=== PATIENT | male | born 1975 | race Caucasian/White ===

== ENCOUNTER 2021-11-18 13:21 | Inpatient (IN) | payer OTHER ==
[2021-11-18] MEDS ORDERED: LOPERAMIDE HCL 2 MG CAPSULE PO PRN (14:24)
[2021-11-18] MEDS ORDERED: ONDANSETRON *ODT* 4 MG TABLET SL PRN (14:24)
[2021-11-18] MEDS ORDERED: IBUPROFEN 400 MG TABLET (FP) PO PRN (14:24)
[2021-11-18] MEDS ORDERED: BISMUTH SUBSALICYLATE 524 MG/30 ML PO PRN (14:24)
[2021-11-18] MEDS ORDERED: MAG HYDROX/AL HYDROX/SIMETH 30 ML UNIT-DOSE CUP PO PRN (14:24)
[2021-11-18] MEDS ORDERED: MAGNESIUM HYDROX 2400MG/30ML ORAL SUSPENSION 30 ML CUP PO PRN (14:24)
[2021-11-18] MEDS ORDERED: MENTHOL/PHENOL 1 EACH UD MM PRN (14:24)
[2021-11-18] MEDS ORDERED: MAGNESIUM CITRATE 300 ML BOTTLE PO PRN (14:24)
[2021-11-18] MEDS ORDERED: ACETAMINOPHEN 325 MG TABLET (FP) PO PRN ×2 (14:24)
[2021-11-18] MEDS ORDERED: NALOXONE HCL 0.4 MG/ML VIAL IM PRN (14:24)
[2021-11-18] MEDS ORDERED: ALBUTEROL SO4 HFA INHALER IH PRN (14:30)
[2021-11-18 15:35] VITALS: BMI 25.0
[2021-11-18] MEDS: METHOCARBAMOL 500 MG TABLET PO PRN (17:54)
[2021-11-18] MEDS: PRENATAL VITAMINS W/ FOLIC ACID TABLET (FP) PO SCH (17:55)
[2021-11-18] MEDS: NICOTINE 21 MG/24 HOURS TOPICAL PATCH TD SCH (17:55)
[2021-11-18] MEDS: diazePAM 5 MG TABLET PO SCH ×2 (17:55→22:41)
[2021-11-18] MEDS: NICOTINE 10 MG CARTRIDGE (INHALER) IH PRN (17:59)
[2021-11-18] MEDS ORDERED: hydrOXYzine PAMOATE 25 MG CAPSULE (FP) PO SCH (18:00)
[2021-11-18] MEDS ORDERED: THIAMINE HCL 100 MG TABLET (FP) PO SCH (22:00)
[2021-11-18] MEDS: MELATONIN 5 MG TABLETS PO SCH (22:41)
[2021-11-18] MEDS: THIAMINE HCL 100 MG TABLET (FP) PO SCH (22:41)
[2021-11-19] MEDS: diazePAM 5 MG TABLET PO SCH ×4 (05:38→22:48)
[2021-11-19] MEDS ORDERED: methaDONE HCL 10 MG TABLET PO SCH (08:45)
[2021-11-19 10:49] LABS: HEMATOCRIT 32.8 % (35.4-49); HEMOGLOBIN 10.8 GM/dL (11.7-16.9); MCH 30.7 pg (25.7-33.7); MEAN CELL VOLUME 93.2 fl (80-96); MEAN PLT VOLUME 8.5 fl (7.5-11.1); PLATELET COUNT 280 10^3/uL (134-434); RBC 3.52 M/mm3 (4.00-5.60); WHITE BLOOD COUNT 6.6 K/mm3 (4.0-10.0)
[2021-11-19 11:02] LABS: CALCIUM 8.7 mg/dL (8.5-10.1)
[2021-11-19 11:03] LABS: ALBUMIN 2.7 g/dl (3.4-5.0); BLOOD UREA NITROGEN 12.8 mg/dL (7-18)
[2021-11-19 11:06] LABS: CREATININE 0.9 mg/dL (0.55-1.3)
[2021-11-19 11:07] LABS: BILIRUBIN,TOTAL 0.5 mg/dL (0.2-1); TOT PROT 6.9 g/dl (6.4-8.2)
[2021-11-19] MEDS ORDERED: methaDONE HCL 40 MG DISPERSABLE TABLET ONE (11:15)
[2021-11-19] MEDS ORDERED: methaDONE HCL 10 MG TABLET ONE (11:15)
[2021-11-19] MEDS: NICOTINE 21 MG/24 HOURS TOPICAL PATCH TD SCH (11:21)
[2021-11-19] MEDS: PRENATAL VITAMINS W/ FOLIC ACID TABLET (FP) PO SCH (11:21)
[2021-11-19] MEDS: NICOTINE 10 MG CARTRIDGE (INHALER) IH PRN (13:02)
[2021-11-19] MEDS: diazePAM 5 MG TABLET PO PRN (20:30)
[2021-11-19] MEDS: THIAMINE HCL 100 MG TABLET (FP) PO SCH (22:47)
[2021-11-19] MEDS: MELATONIN 5 MG TABLETS PO SCH (22:47)
[2021-11-20] MEDS ORDERED: methaDONE HCL 10 MG TABLET ONE (04:45)
[2021-11-20] MEDS ORDERED: methaDONE HCL 40 MG DISPERSABLE TABLET ONE (04:46)
[2021-11-20] MEDS: diazePAM 5 MG TABLET PO SCH ×3 (06:08→22:24)
[2021-11-20] MEDS: NICOTINE 10 MG CARTRIDGE (INHALER) IH PRN (08:38)
[2021-11-20] MEDS: diazePAM 5 MG TABLET PO PRN ×2 (09:57→17:47)
[2021-11-20] MEDS: PRENATAL VITAMINS W/ FOLIC ACID TABLET (FP) PO SCH (09:57)
[2021-11-20] MEDS: NICOTINE 21 MG/24 HOURS TOPICAL PATCH TD SCH (09:59)
[2021-11-20] MEDS: MELATONIN 5 MG TABLETS PO SCH (22:23)
[2021-11-20] MEDS: THIAMINE HCL 100 MG TABLET (FP) PO SCH (22:23)
[2021-11-20 23:07] LABS: SARS-CoV-2 NAA Not Detected (Not Detected)
[2021-11-21] MEDS: METHOCARBAMOL 500 MG TABLET PO PRN ×2 (02:33→10:33)
[2021-11-21] MEDS ORDERED: methaDONE HCL 40 MG DISPERSABLE TABLET ONE (04:39)
[2021-11-21] MEDS ORDERED: methaDONE HCL 10 MG TABLET ONE (04:39)
[2021-11-21] MEDS: diazePAM 5 MG TABLET PO SCH ×2 (05:22→17:40)
[2021-11-21] MEDS: diazePAM 5 MG TABLET PO PRN (10:33)
[2021-11-21] MEDS: PRENATAL VITAMINS W/ FOLIC ACID TABLET (FP) PO SCH (10:34)
[2021-11-21] MEDS: NICOTINE 21 MG/24 HOURS TOPICAL PATCH TD SCH (10:35)
[2021-11-21 13:16] VITALS: BP 105/75; PULSE 78; TEMP 97.8
[2021-11-21] MEDS ORDERED: BACITRACIN 0.9 GM PACKET TP SCH (13:30)
[2021-11-22] MEDS ORDERED: diazePAM 5 MG TABLET PO ONE (06:00)
== END 2021-11-21 16:29 | disposition left against medical advice (07) | DRG 770 ==
LOC: YASAS 13:21 → Y3N 15:27
PROVIDERS: ADMIT Allergy & Immunology; ATTEND Allergy & Immunology
PROC: HZ2ZZZZ Detoxification Services for Substance Abuse Treatment (ICD-10-PCS; principal; 2021-11-18)
DX: F10.230 Alcohol dependence with withdrawal, uncomplicated (principal); F11.20 Opioid dependence, uncomplicated; F13.20 Sedative, hypnotic or anxiolytic dependence, uncomplicated; F17.210 Nicotine dependence, cigarettes, uncomplicated; F43.10 Post-traumatic stress disorder, unspecified; R94.31 Abnormal electrocardiogram [ECG] [EKG]
CPT/HCPCS: 36415; 80053; 85027; 86780; 87811; 93005; 93010; C9803-CS; U0003; U0005